=== PATIENT | female | born 1965 | race Two or more races ===

== ENCOUNTER 2024-02-10 07:23 | Emergency (ER) | payer OTHER ==
[~2024-02-10] VITALS: Ht 162.6 cm; Wt 60.3 kg
[2024-02-10] MEDS ORDERED: SYNTHROID100 MCG PO (08:13)
[2024-02-10 11:11] LABS: RED BLOOD COUNT 4.56 M/uL (4.00-6.00)
[2024-02-10 11:12] LABS: HEMATOCRIT 41.6 % (36.0-45.00); MEAN CELL VOLUME 91.4 fL (80.00-100.00); MEAN CORPUSCULAR HEMOGLOBIN 30.8 pg (27.00-32.0); MEAN CORPUSCULAR HGB CONC 33.7 g/dl (32.0-36.0); PLATELET COUNT 232 K/uL (150-450); RED CELL DISTRIBUTION WIDTH 12.9 % (11.5-14.5)
[2024-02-10 11:21] LABS: CREATININE SERUM 0.8 mg/dL (0.55-1.02); GFR 73.67; POTASSIUM 3.81 mEq/L (3.5-5.1)
== END 2024-02-10 13:38 | disposition home or self-care (01) ==
LOC: ER 07:25
DX: B34.9 Viral infection, unspecified (principal); R53.81 Other malaise; Z20.822 Contact with and (suspected) exposure to COVID-19